=== PATIENT | female | born 1995 | race African-American/Black ===

== ENCOUNTER 2017-07-12 01:28 | Emergency (ER) | payer MEDICAID ==
[~2017-07-12] VITALS: Ht 165.1 cm; Wt 88.0 kg
[2017-07-12 01:38] VITALS: BP 139/86
== END 2017-07-12 04:21 | disposition left against medical advice (07) ==
LOC: ER 01:28
DX: Z53.21 Procedure and treatment not carried out due to patient leaving prior to being seen by health care provider (principal)